=== PATIENT | female | born 1945 | race Caucasian/White ===

== ENCOUNTER 2016-10-06 09:49 | Day surgery (SDC) | payer MEDICARE, OTHER ==
[~2016-10-06 09:49] MED LIST: LACTATED RINGERS 1,000 ML IV SCH
[2016-10-06] MEDS ORDERED: LACTATED RINGERS 1,000 ML ONE (10:06)
[2016-10-06] MEDS ORDERED: IV START KIT ONE (10:06)
[2016-10-06] MEDS ORDERED: LIDOCAINE 2% (PRES FREE) 5 ML VIAL ONE (11:00)
[2016-10-06] MEDS ORDERED: PROPOFOL 20 ML IV ONE (11:00)
[2016-10-06 15:33] LABS: HELICOBACTER PYLORII DETECTION NEGATIVE (NEGATIVE)
--- NOTE | 2016-10-10 09:40 | SURGPATH ---
[facility] [address] [place] [id number] Patient Name: FREDI SUAREZ MR#: [id number] : 1945 Gender: F Specimen #: [id number] Collected: 10/06/2016 Received: 10/07/2016 Reported: 10/10/2016 Submitting Phys: RACHAEL TALAVERA Copy To Phys: [facility] ILENE MCKINNEY Clinical History / Pre-Operative Diagnosis: Epigastric pain with bloating; satiety; nausea; rule out Giardia, celiac sprue and gastritis Specimen Source / Surgical Procedure Performed: #1-duodenal biopsy; #2-antral biopsy Interpretation: 1. DUODENUM, BIOPSY: - NO PATHOLOGIC ABNORMALITIES 2. GASTRIC ANTRUM, BIOPSY: - NO PATHOLOGIC ABNORMALITIES Electronically Signed Out Idris Joel M.D. Gross Description: #1 The specimen is received in a formalin filled container labeled with the patient's name and "duodenal biopsy". A single quezada biopsy is 0.4 cm. Totally embedded in cassette #1. #2 The specimen is received in a formalin filled container labeled with the patient's name and "antral biopsy". Two genao-quezada biopsies are 0.3 and 0.5 cm. Totally embedded in cassette #2. Edgar Zuleta Microscopic Description: 1. The sections show fragments of small bowel mucosa exhibiting a normal architectural pattern without evidence of villous blunting. There are no inflammatory or neoplastic features and there are no microorganisms identified. 2. The sections show fragments of gastric mucosa exhibiting a normal architectural pattern. There are no inflammatory or neoplastic features and there are no Helicobacter-like organisms identified. 1: 45091 2: 47717 R10.13
== END 2016-10-06 11:53 | disposition home or self-care (01) ==
LOC: SDC 09:49
PROVIDERS: ATTEND Internal Medicine Gastroenterology
PROC: 0DB68ZX Excision of Stomach, Via Natural or Artificial Opening Endoscopic, Diagnostic (ICD-10-PCS; principal; 2016-10-06)
PROC: 0DB98ZX Excision of Duodenum, Via Natural or Artificial Opening Endoscopic, Diagnostic (ICD-10-PCS; 2016-10-06)
DX: K29.70 Gastritis, unspecified, without bleeding (principal); K29.80 Duodenitis without bleeding; I10 Essential (primary) hypertension; M35.3 Polymyalgia rheumatica; Z88.2 Allergy status to sulfonamides; Z88.5 Allergy status to narcotic agent; Z88.1 Allergy status to other antibiotic agents; Z79.899 Other long term (current) drug therapy
CPT/HCPCS: 43239; 87081; J7120